=== PATIENT | male | born 1965 | race Caucasian/White ===

== ENCOUNTER 2020-09-17 20:49 | Emergency (ER) | payer OTHER, SELFPAY ==
[~2020-09-17] VITALS: Ht 182.9 cm; Wt 77.8 kg
--- NOTE | 2020-09-17 21:10 | NUR ---
ERP AT BEDSIDE
[2020-09-17 21:42] LABS: BASOPHILS % (AUTO) 1 % (0-1); EOSINOPHILS % (AUTO) 6 % (1-7); LYMPHOCYTES % (AUTO) 27 % (22-44); MEAN CORPUSCULAR HEMOGLOBIN 27.7 pg (27.5-34.5); MEAN CORPUSCULAR HGB CONC 34.1 g/dL (33.2-36.2); MEAN PLATELET VOLUME 7.4 fL (7.4-10.4); MONOCYTES % (AUTO) 6 % (2-9); NEUTROPHILS % (AUTO) 60 % (42-75); PLATELET COUNT 275 x10^3/uL (130-400); RED BLOOD COUNT 5.11 x10^6/uL (4.38-5.82); RED CELL DISTRIBUTION WIDTH 13.4 % (9.4-14.8)
[2020-09-17 21:44] LABS: MD NO
[2020-09-17 21:54] LABS: ALANINE AMINOTRANSFERASE 33 U/L (12-78); ALBUMIN 3.8 g/dL (3.4-5.0); ANION GAP 8 mmol/L (5-15); CALCIUM 8.6 mg/dL (8.5-10.1); CHLORIDE 110 mmol/L (98-107); CREATININE 1.16 mg/dL (0.7-1.3)
[2020-09-17 21:56] LABS: ALKALINE PHOSPHATASE 61 U/L (45-117); BILIRUBIN,TOTAL 0.6 mg/dL (0.2-1.0); TOTAL PROTEIN 7.3 g/dL (6.4-8.2)
--- NOTE | 2020-09-17 22:55 | NUR ---
Patient given discharge instructions and they have confirmed that they understand the instructions. Patient ambulatory with steady gait.
[2020-09-17 23:05] VITALS: BP 139/87
== END 2020-09-17 23:07 | disposition home or self-care (01) ==
LOC: ED 22:10
DX: F41.1 Generalized anxiety disorder (principal); I10 Essential (primary) hypertension; M10.9 Gout, unspecified
CPT/HCPCS: 36415; 80053; 85025; 99283; Q0177

== ENCOUNTER 2020-10-09 00:41 | Emergency (ER) | payer SELFPAY ==
[~2020-10-09] VITALS: Ht 182.9 cm; Wt 77.0 kg
--- NOTE | 2020-10-09 01:01 | NUR ---
REPORT GIVEN TO MIKY WHEELER.
[2020-10-09] MEDS ORDERED: COLCHICINE 0.6 MG CAPSULE ONE (01:13)
--- NOTE | 2020-10-09 01:25 | NUR ---
Pt with right hand redness and pain. Pt states starting a HCTZ and thinks it flared up his gout. Pt medicated per order. Will monitor.
[2020-10-09] MEDS ORDERED: INDOMETHACIN 50 MG CAPSULE PO ONE (01:30)
[2020-10-09] MEDS ORDERED: COLCHICINE 0.6 MG CAPSULE PO ONE (01:30)
[2020-10-09 02:38] VITALS: BP 138/64
--- NOTE | 2020-10-09 02:39 | NUR ---
Patient/Caregiver given discharge instructions and they have confirmed that they understand the instructions. Patient ambulatory with steady gait.
== END 2020-10-09 02:40 | disposition home or self-care (01) ==
LOC: ED 02:30
DX: M10.041 Idiopathic gout, right hand (principal); M79.641 Pain in right hand; I10 Essential (primary) hypertension
CPT/HCPCS: 99283

== ENCOUNTER 2021-02-13 10:11 | Emergency (ER) | payer SELFPAY ==
[~2021-02-13] VITALS: Ht 182.9 cm; Wt 75.0 kg
[2021-02-13 10:18] VITALS: BP 164/103
== END 2021-02-13 11:18 | disposition home or self-care (01) ==
LOC: ED 10:53
DX: M10.071 Idiopathic gout, right ankle and foot (principal); M79.671 Pain in right foot; I10 Essential (primary) hypertension
CPT/HCPCS: 99283

== ENCOUNTER 2021-02-23 07:46 | Emergency (ER) | payer SELFPAY ==
[~2021-02-23] VITALS: Ht 182.9 cm; Wt 74.3 kg
--- NOTE | 2021-02-23 09:00 | NUR ---
MD Gee at bedside for eval. Awaiting orders.
[2021-02-23 10:30] VITALS: BP 120/93
== END 2021-02-23 10:32 | disposition home or self-care (01) ==
LOC: ED 09:21
DX: M10.042 Idiopathic gout, left hand (principal); M10.041 Idiopathic gout, right hand; M10.072 Idiopathic gout, left ankle and foot; M10.071 Idiopathic gout, right ankle and foot; I10 Essential (primary) hypertension
CPT/HCPCS: 99283

== ENCOUNTER 2021-03-25 10:38 | Emergency (ER) | payer SELFPAY ==
[~2021-03-25] VITALS: Ht 190.5 cm; Wt 74.1 kg
[2021-03-25 10:46] VITALS: BP 156/101
--- NOTE | 2021-03-25 11:33 | NUR ---
Patient given discharge instructions and Rx, they have confirmed that they understand the instructions. Patient ambulatory with steady gait.
== END 2021-03-25 11:45 | disposition home or self-care (01) ==
LOC: ED 11:20
DX: M1A.9XX0 Chronic gout, unspecified, without tophus (tophi) (principal); M13.0 Polyarthritis, unspecified; Z76.0 Encounter for issue of repeat prescription; I10 Essential (primary) hypertension
CPT/HCPCS: 99281